=== PATIENT | male | born 1945 | race Caucasian/White ===

== ENCOUNTER → 2024-10-27 15:46 | Outpatient (REF) | payer MEDICARE, OTHER, SELFPAY | LOC: HWRCS 15:46 | PROVIDERS: ATTENDING PHYSICIAN Internal Medicine Cardiovascular Disease | DX: R55 Syncope and collapse (principal) | CPT/HCPCS: 93306 ==

== ENCOUNTER → 2025-03-19 11:10 | Outpatient (REF) | payer MEDICARE, OTHER, SELFPAY ==
[2025-03-19 16:08] LABS: Hematocrit 41.9 % (39.0-52.0); Hemoglobin 13.5 g/dL (13.0-18.0); Mean Corp Hgb Conc. 32.2 g/dL (33.0-37.0); Mean Corpuscular Volume 105.8 fL (80.0-94.0); Nucleated Red Blood Cells % 0 % (-); Platelet Count 163 10^3/uL (130-400); Red Cell Dist. Width 13.2 % (11.5-14.5)
[2025-03-19 16:12] LABS: ALT (SGPT) 78 U/L (0-50); AST (SGOT) 171 U/L (17-59); Albumin 4.2 g/dl (3.5-5.0); Alkaline Phosphatase 77 U/L (38-126); Blood Urea Nitrogen 11 mg/dl (9-20); Calcium 9.4 mg/dl (8.4-10.2); Carbon Dioxide 23 mmol/L (22-30); Chloride 106 mmol/L (98-107); Glucose 62 mg/dl (70-99); Potassium 4.6 mmol/L (3.5-5.1); Sodium 140 mmol/L (135-145); Total Protein 7.2 g/dl (6.3-8.2); Very Low Density Lipoprotein 25 mg/dl (0-30); eGFR > 60.00
[2025-03-19 16:22] LABS: HDL Cholesterol 116 mg/dl; LDL Cholesterol, Calculated 54 mg/dl
[2025-03-19 16:27] LABS: Urine Character Clear (Clear)
[2025-03-19 17:25] LABS: Folate 2.5 ng/ml (2.76-20); Vitamin B12 207 pg/ml (239-931)
== END ==
LOC: HWLAB 11:10
DX: F10.10 Alcohol abuse, uncomplicated (principal); R63.0 Anorexia; Z79.899 Other long term (current) drug therapy
CPT/HCPCS: 36415; 80053; 80061; 81003; 82607; 82746; 84443; 85025

== ENCOUNTER 2025-03-23 12:07 | Emergency (ER) | payer MEDICARE, OTHER, SELFPAY ==
[2025-03-23] VITALS (8 sets, daily range): BP systolic 131–160; BP diastolic 70–100; BMI 21.5
[2025-03-23 12:33] LABS: Hematocrit 39.2 % (39.0-52.0); Hemoglobin 13.2 g/dL (13.0-18.0); Mean Corp Hgb Conc. 33.7 g/dL (33.0-37.0); Mean Corpuscular Volume 101.3 fL (80.0-94.0); Nucleated Red Blood Cells % 0 % (-); Platelet Count 142 10^3/uL (130-400); Red Cell Dist. Width 13.0 % (11.5-14.5)
[2025-03-23 12:49] LABS: ALT (SGPT) 107 U/L (0-50); AST (SGOT) 275 U/L (17-59); Albumin 4.3 g/dl (3.5-5.0); Alkaline Phosphatase 74 U/L (38-126); Blood Urea Nitrogen 10 mg/dl (9-20); Calcium 9.9 mg/dl (8.4-10.2); Carbon Dioxide 25 mmol/L (22-30); Chloride 106 mmol/L (98-107); Glucose 85 mg/dl (70-99); Potassium 4.8 mmol/L (3.5-5.1); Sodium 140 mmol/L (135-145); Total Protein 7.3 g/dl (6.3-8.2); eGFR > 60.00
[2025-03-23 13:01] LABS: Troponin I 0.015 ng/ml
--- NOTE | 2025-03-23 15:15 | ED.GENMED ---
History of Present Illness
General
Chief Complaint: Breathing Problem
Source: patient
Exam Limitations: none
Time Seen by Provider: 03/23/25 14:56
History of Present Illness
History of Present Illness:
79-year-old male with no prior medical diagnoses presents complaining of shortness of breath worsening over the past month with extreme fatigue lack of appetite and weight loss. He denies any significant chest pain. No significant fever noted. He
has been seen as an outpatient through the resident clinic and they have performed outpatient labs without any significant findings. Today he followed up with them and expressed his symptoms and he was referred here for further evaluation. About 4
weeks ago he flew back and forth to [place]. He denies chest pain. Denies leg swelling or calf pain. No recent surgery. No known tick bites or rashes. He states his food tastes differently at this time and he has no appetite. He has been
moving his bowels and urinating well.
Phy Exam
Physical Exam
Physical Exam:
General: Well-appearing male no acute respiratory distress
HEENT: Normocephalic atraumatic
Heart: Regular rate and rhythm
Lungs: Clear no wheeze
Abdomen is soft nontender
Extremities: No cyanosis or edema
Skin is warm no rash
Scores
Heart Failure Risk
Heart Failure Risk Score: Not Applicable
Course
Orders/Labs/Results
Orders:
Orders
03/23/25 12:19
Electrocardiogram (*1) Urgent
Reason for Study: Other
Other Reason for Exam: Respiratory Distress
EKG- Treatment ONCE
CR Chest - 2 Views Urgent
Comment:
Reason For Exam: respiratory distress
03/23/25 12:27
Complete Blood Count/With Diff Urgent
Comprehensive Metabolic Panel Urgent
Lipase Urgent
Comment: ADD ON
Lyme Progressive Urgent
Comment: ADD ON
NT-proBNP Urgent
TSH Reflex To Free T4 Urgent
Comment: ADD ON
Troponin I Urgent
03/23/25 15:09
Add On- LAB Urgent
Tests Added?: lipase, tsh reflex to t4
CT Chest PE Study Urgent
Comment:
Reason For Exam: sob
03/23/25 15:14
Add On- LAB Urgent
Tests Added?: lyme progressive
03/23/25 15:23
COVID-19 Antigen Urgent
Source: Nasal Swab
03/23/25 17:25
Troponin I Urgent
Abnormal Lab Results
03/23/25
12:27
WBC 4.1 L 10^3/uL
(4.8-10.8)
RBC 3.87 L 10^6/uL
(4.70-6.10)
MCV 101.3 H fL
(80.0-94.0)
MCH 34.1 H pg
(27.0-31.0)
Monocytes % 11.1 H %
(1.7-9.3)
AST 275 H U/L
(17-59)
ALT 107 H U/L
(0-50)
03/23/25 12:27
03/23/25 12:27
Vital Signs
Initial and Last Documented VS:
Initial Vital Signs
Temp Pulse Resp BP Pulse Ox
97.7 F 88 16 156/70 98
03/23/25 12:16 03/23/25 12:16 03/23/25 12:16 03/23/25 12:16 03/23/25 12:16
Last Documented Vital Signs
Temp Pulse Resp BP Pulse Ox
97.7 F 84 13 150/88 96
03/23/25 12:16 03/23/25 18:00 03/23/25 18:00 03/23/25 18:00 03/23/25 18:00
MDM/Problems Addressed
Differential Diagnosis Includes:
Fatigue weight loss shortness of breath. Recent outpatient workup negative. He had an echocardiogram this October which showed normal results. His ejection fraction then was 65%. Consider possible PE given shortness of breath. Will check lipase
for pancreatic enzymes. Exam is otherwise quite benign. X-ray of the chest was ordered through triage today which were reviewed and shows no acute finding. He has a normal BNP and troponin. He is not anemic. Will add Lyme test as well as
thyroid studies
*Pulse Oximetry
SaO2: 96
Oxygen Mode of Delivery: Room air
Patient hypoxic: no
*Critical Care Note
Total Time (30-74mins, 75-104mins- exclusive of procedures): Not Applicable
Update Note
Update Note:
PE study negative. There is a 4 mm nodule in the right lower lung this was relayed to the patient. Repeat troponin is pending. Otherwise workup is unremarkable. Patient expresses his desire to go home. [facility]. He
is established with [facility]. No indication for admission at this time. Did associate counsel him on the importance of moderating his alcohol intake.
ED Attending Note
-
Portions of this chart may have been created with voice recognition software.� Occasional wrong word or��sound alike� substitutions may have occurred due to the inherent limitations of voice recognition software.
Discharge Plan
Departure
Patient Disposition: Home (Routine Discharge)
Date of Disposition: 03/23/25
Time of Disposition: 18:05
Patient with high blood pressure during this ER visit?: No
Discharge Problem:
Exertional shortness of breath
Instructions: Chest Pain [facility] Follow Up, *[facility] Heart Failure Instructions
Referrals:
UNKNOWN - PT DOES,NOT KNOW [Family Provider]
Activity Restrictions/Additional Instructions:
Limit alcohol. Please return here for worsening symptoms. Follow-up with cardiology otherwise
Interventions
Interventions:
*Risk Screen - Suicide Last Done: 03/23/25 12:16
*General Assessment Last Done: 03/23/25 13:55
*Neglect/Abuse Screening Last Done: 03/23/25 12:16
*ED- Fall Risk Assessment Last Done: 03/23/25 13:55
*ED COVID-19 Vaccine History Last Done: 03/23/25 13:55
*Nursing Disposition Last Done: 03/23/25 18:13
ED- Cardiac Assessment Last Done: 03/23/25 13:55
ED- Pulmonary Assessment Last Done: 03/23/25 13:55
Discharge Date and Time
Discharge Date/Time: 03/23/25 18:15
Print Language: TANZANIAN
[2025-03-23 15:44] LABS: COVID-19 Antigen Negative (Negative)
[2025-03-23 16:02] LABS: Lipase 101 U/L (23-300)
[2025-03-23 18:03] LABS: Troponin I 0.012 ng/ml
[2025-03-26 13:13] LABS: Lyme Antibody Screen, EIA Negative (Negative)
== END 2025-03-23 18:15 | disposition home or self-care (01) ==
LOC: EMR 12:07
PROVIDERS: Emergency Medicine; Physician Assistant; EMERGENCY PHYSICIAN Emergency Medicine
DX: R06.02 Shortness of breath (principal); R53.83 Other fatigue; R63.0 Anorexia; R63.4 Abnormal weight loss
CPT/HCPCS: 99284; 71046; 71275; 80053; 83690; 83880; 84443; 84484; 85025; 86618; 87811; 93005; Q9967

== ENCOUNTER → 2025-05-04 11:41 | Outpatient (REF) | payer MEDICARE, OTHER, SELFPAY | LOC: RAD 11:41 | PROVIDERS: ATTENDING PHYSICIAN Student in an Organized Health Care Education/Training Program | DX: R63.4 Abnormal weight loss (principal); R53.1 Weakness; R63.0 Anorexia | CPT/HCPCS: 74177; Q9967 ==

== ENCOUNTER → 2025-06-21 12:29 | Outpatient (REF) | payer MEDICARE, OTHER, SELFPAY | LOC: RSP 12:29 | PROVIDERS: ATTENDING PHYSICIAN Student in an Organized Health Care Education/Training Program | DX: R53.1 Weakness (principal); R53.81 Other malaise; R06.02 Shortness of breath | CPT/HCPCS: 88738; 94010; 94727; 94729 ==

== ENCOUNTER → 2025-07-09 13:32 | Outpatient (REF) | payer MEDICARE, OTHER, SELFPAY | LOC: HWRCS 13:32 | PROVIDERS: ATTENDING PHYSICIAN Student in an Organized Health Care Education/Training Program | DX: R06.2 Wheezing (principal) | CPT/HCPCS: 93306 ==

== ENCOUNTER → 2025-07-18 12:09 | Outpatient (REF) | payer MEDICARE, OTHER, SELFPAY ==
[2025-07-18 16:24] LABS: ALT (SGPT) 60 U/L (0-50); AST (SGOT) 157 U/L (17-59); Albumin 4.1 g/dl (3.5-5.0); Alkaline Phosphatase 92 U/L (38-126); Blood Urea Nitrogen 13 mg/dl (9-20); Calcium 9.3 mg/dl (8.4-10.2); Carbon Dioxide 23 mmol/L (22-30); Chloride 104 mmol/L (98-107); Glucose 69 mg/dl (70-99); Potassium 4.5 mmol/L (3.5-5.1); Sodium 137 mmol/L (135-145); Total Protein 7.0 g/dl (6.3-8.2); eGFR > 60.00
[2025-07-19 21:16] LABS: Hepatitis A Antibody, Total Negative (Negative); Hepatitis C Antibody Negative (Negative)
[2025-07-21 00:55] LABS: Lead - Venous 6.9 ug/dL (<=3.4)
== END ==
LOC: REG 12:09
PROVIDERS: ATTENDING PHYSICIAN Internal Medicine Gastroenterology; FAMILY PHYSICIAN Student in an Organized Health Care Education/Training Program
DX: R63.4 Abnormal weight loss (principal); R53.1 Weakness; F10.90 Alcohol use, unspecified, uncomplicated; R79.89 Other specified abnormal findings of blood chemistry; Z77.011 Contact with and (suspected) exposure to lead
CPT/HCPCS: 36415; 80053; 83655; 84155; 84165; 84439; 84443; 86618; 86706; 86708; 86803

== ENCOUNTER → 2025-07-31 15:10 | Outpatient (REF) | payer MEDICARE, OTHER, SELFPAY ==
[2025-07-31 16:57] LABS: Free T3 3.50 pg/ml (2.77-5.27)
[2025-08-03 02:14] LABS: Thyroglobulin Antibodies <1.5 IU/mL (0.0-4.0)
== END ==
LOC: REG 15:10
PROVIDERS: ATTENDING PHYSICIAN Student in an Organized Health Care Education/Training Program
DX: R79.89 Other specified abnormal findings of blood chemistry (principal); E05.90 Thyrotoxicosis, unspecified without thyrotoxic crisis or storm
CPT/HCPCS: 36415; 84481; 86376; 86800